=== PATIENT | male | born 1945 | race Caucasian/White ===

== ENCOUNTER 2018-05-24 09:35 | Emergency (ER) | payer MEDICARE ==
[2018-05-24 09:53] VITALS: BP 126/77
--- NOTE | 2018-05-24 10:33 | ED Physician Documentation ---
PD HPI SKIN - Stated complaint Stated Complaint: RASH/BACK PX - Chief complaint Chief Complaint: General - History obtained from History obtained from: Patient, Family - History of Present Illness Timing - onset: Today Timing - duration: Minutes Timing - details: Abrupt onset, Still present Location: Abdomen Quality / character: Itchy, Painful Associated symptoms: Abd pain. No: Fever, Myalgias, Joint pain Contributing factors: Other (moved to the area this summer) Similar symptoms before: Has not had sx before Recently seen: Not recently seen - Additional information Additional information: 73-year-old male who was previously well has developed a rash on his abdomen and back. He states that for about 3 days he has had some funny back and abdominal pain without nausea vomiting diarrhea or constipation. He has not had fever. He has noticed this outbreak of a rash on the right side of his abdomen and back this morning. He did get a shingles shot about 3 years ago. He is recently moved to the area from [place] and the couple has a grandchild here on [facility]. Review of Systems Constitutional: denies: Fever, Chills, Myalgias, Fatigue Eyes: denies: Decreased vision Nose: denies: Rhinorrhea / runny nose, Congestion Throat: denies: Sore throat Cardiac: denies: Chest pain / pressure, Palpitations Respiratory: denies: Dyspnea, Cough GI: reports: Abdominal Pain. denies: Nausea, Vomiting, Constipation, Diarrhea : denies: Dysuria, Frequency Skin: reports: Rash Musculoskeletal: reports: Back pain. denies: Neck pain, Extremity pain Neurologic: denies: Generalized weakness, Focal weakness, Numbness PD PAST MEDICAL HISTORY - Past Medical History Past Medical History: Yes Cardiovascular: High cholesterol Endocrine/Autoimmune: Type 2 diabetes GI: Diverticulitis - Past Surgical History Past Surgical History: Yes Derm: Skin cancer surgery - Present Medications Home Medications: Ambulatory Orders Medication Instructions Recorded Confirmed Hydrocodone/Acetaminophen 1 - 2 each PO Q6H PRN #14 tablet 05/24/18 [Hydrocodon-Acetaminophen 5-325] Metformin HCl 05/24/18 Pravastatin [Pravachol] 05/24/18 Sitagliptin Phosphate [Januvia] 05/24/18 Valacyclovir HCl [Valacyclovir] 1,000 mg PO TID #21 tablet 05/24/18 - Allergies Allergies/Adverse Reactions: Allergies Allergy/AdvReac Type Severity Reaction Status Date / Time No Known Drug Allergies Allergy Verified 05/24/18 09:52 - Social History Does the pt smoke?: No Smoking Status: Never smoker Does the pt drink ETOH?: No Does the pt have substance abuse?: No - Immunizations Immunizations are current?: Yes - POLST Patient has POLST: No PD ED PE NORMAL - Vitals Vital signs reviewed: Yes - General General: Alert and oriented X 3, No acute distress, Well developed/nourished - HEENT HEENT: Atraumatic, PERRL, EOMI - Neck Neck: Supple, no meningeal sign - Cardiac Cardiac: RRR, No murmur - Respiratory Respiratory: No respiratory distress, Clear bilaterally - Derm Derm: Normal color, Warm and dry, Other (The rash to the right flank and abdomen is consistent with acute shingles ) - Extremities Extremities: No deformity, No edema - Neuro Neuro: Alert and oriented X 3, 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 He does have a [id number] grandchild and he is instructed to avoid contact with the rash area until it is healed over. Departure - Departure Disposition: 01 Home, Self Care Clinical Impression: Shingles Qualifiers: Herpes zoster complications: unspecified herpes zoster complication Qualified Code(s): B02.8 - Zoster with other complications Condition: Stable Instructions: ED Shingles Follow-Up: Your, doctor [Other] Prescriptions: Hydrocodone/Acetaminophen [Hydrocodon-Acetaminophen 5-325] 1 - 2 each PO Q6H PRN #14 tablet PRN Reason: pain Valacyclovir HCl [Valacyclovir] 1,000 mg PO TID #21 tablet
[2018-05-24] MEDS ORDERED: BACITRACIN OINT TOP ONE (10:36)
== END 2018-05-24 10:44 | disposition home or self-care (01) ==
LOC: ED 09:35
DX: B02.8 Zoster with other complications (principal); E11.9 Type 2 diabetes mellitus without complications; Z79.84 Long term (current) use of oral hypoglycemic drugs
CPT/HCPCS: 99283; A9270

== ENCOUNTER 2018-06-11 11:22 | Emergency (ER) | payer MEDICARE ==
[2018-06-11 12:13] LABS: BASOPHILS # (AUTO) 0.1 10^3/uL (0.0-0.1); BASOPHILS % (AUTO) 0.7 %; EOSINOPHILS # (AUTO) 0.1 10^3/uL (0.0-0.7); EOSINOPHILS % (AUTO) 1.1 %; HGB - HEMOGLOBIN 16.1 g/dL (14.0-18.0); LYMPHOCYTES # (AUTO) 1.7 10^3/uL (1.5-3.5); LYMPHOCYTES % (AUTO) 13.1 %; MEAN CORPUSCULAR HEMOGLOBIN 32.8 pg (27.0-31.0); MEAN CORPUSCULAR HGB CONC 34.3 g/dL (32.0-36.0); MEAN CORPUSCULAR VOLUME 95.6 fL (80.0-94.0); MEAN PLATELET VOLUME 8.6 fL (7.4-11.4); MONOCYTES # (AUTO) 0.6 10^3/uL (0.0-1.0); MONOCYTES % (AUTO) 4.8 %; NEUTROPHILS # (AUTO) 10.4 10^3/uL (1.5-6.6); NEUTROPHILS % (AUTO) 80.3 %; PLT - PLATELET COUNT 297 10^3/uL (130-450); RED BLOOD COUNT 4.93 10^6/uL (4.70-6.10); RED CELL DISTRIBUTION WIDTH 14.1 % (12.0-15.0)
--- NOTE | 2018-06-11 12:29 | ED Physician Documentation ---
PD HPI ABD PAIN - Stated complaint Stated Complaint: AB SWELLING/PX - Chief complaint Chief Complaint: Abd Pain - History obtained from History obtained from: Patient - History of Present Illness Timing - onset: How many weeks ago (2 1/2 weeks of right back/abd pain due to shingles. Lesions are crusting. PMD started Gabapentin few days ago due to continued pain. Patient says has some increased pain right abd and some feeling of swelling. Went to PMD and there was concern of appy or diverticulitis or such, so referred to ED for CT/eval.) Timing - duration: Weeks (2 1/2) Timing - details: Gradual onset, Still present Quality: Aching, Pain Location: RLQ Radiation: Right flank Improved by: No: Eating Worsened by: No: Eating Associated symptoms: Nausea, Loss of appetite. No: Fever, Vomiting, Diarrhea, Constipation, Dysuria Review of Systems Constitutional: reports: Myalgias. denies: Fever, Chills Nose: denies: Rhinorrhea / runny nose, Congestion Throat: denies: Sore throat Cardiac: denies: Chest pain / pressure Respiratory: denies: Dyspnea, Cough GI: reports: Abdominal Pain. denies: Vomiting, Constipation, Diarrhea : denies: Dysuria, Frequency Skin: reports: Rash PD PAST MEDICAL HISTORY - Past Medical History Cardiovascular: High cholesterol Endocrine/Autoimmune: Type 2 diabetes GI: Diverticulitis - Past Surgical History Past Surgical History: Yes Derm: Skin cancer surgery - Present Medications Home Medications: Ambulatory Orders Medication Instructions Recorded Confirmed Hydrocodone/Acetaminophen 1 - 2 each PO Q6H PRN #14 tablet 05/24/18 [Hydrocodon-Acetaminophen 5-325] Metformin HCl 05/24/18 Pravastatin [Pravachol] 05/24/18 Sitagliptin Phosphate [Januvia] 05/24/18 Cephalexin [Keflex] 500 mg PO Q6H #28 capsule 06/11/18 Docusate Sodium [Dulcolax Stool 06/11/18 Softener] Gabapentin 600 mg PO TID 06/11/18 06/11/18 Naproxen 500 mg PO BID #20 tablet 06/11/18 Sennosides [Senna Laxative] 2 tab PO QID 06/11/18 06/11/18 - Allergies Allergies/Adverse Reactions: Allergies Allergy/AdvReac Type Severity Reaction Status Date / Time No Known Drug Allergies Allergy Verified 06/11/18 11:50 - Social History Does the pt smoke?: No Smoking Status: Never smoker Does the pt drink ETOH?: No Does the pt have substance abuse?: No - Immunizations Immunizations are current?: Yes - POLST Patient has POLST: No PD ED PE NORMAL - Vitals Vital signs reviewed: Yes - General General: Alert and oriented X 3, No acute distress, Well developed/nourished - Neck Neck: Supple, no meningeal sign, No adenopathy - Cardiac Cardiac: RRR, No murmur - Respiratory Respiratory: Clear bilaterally - Abdomen Abdomen: Normal bowel sounds, Soft, Non distended, No organomegaly, Other (there is shingles rash with some scabbing on right back/around to abd in T10 area, with local tenderness. There is local tenderness to deeper palpation in that area of abd. Not tender in rest of abd and no percussion nor rebound tenderness. ) - Male Male : Deferred - Rectal Rectal: Deferred - Derm Derm: Warm and dry, Other (shingles rash as noted right back/abd) - Neuro Neuro: Alert and oriented X 3, No motor deficit, Normal speech Results - Vitals Vitals: Vital Signs - 24 hr 06/11/18 14:30 Heart Rate 70 Respiratory 16 Rate Blood Pressure 109/71 Oxygen O2 Source Room air - Labs Labs: Laboratory Tests 06/11/18 06/11/18 12:05 12:05 WBC 13.0 H RBC 4.93 Hgb 16.1 Hct 47.1 MCV 95.6 H MCH 32.8 H MCHC 34.3 RDW 14.1 Plt Count 297 MPV 8.6 Neut # (Auto) 10.4 H Lymph # (Auto) 1.7 [place] # (Auto) 0.6 Eos # (Auto) 0.1 Baso # (Auto) 0.1 Absolute Nucleated RBC 0.00 Nucleated RBC % 0.0 Sodium 136 Potassium 4.1 Chloride 101 Carbon Dioxide 27 Anion Gap 8.0 BUN 15 Creatinine 0.9 Estimated GFR (MDRD) 83 L Glucose 160 H Calcium 9.3 Total Bilirubin 0.3 AST 20 ALT 30 Alkaline Phosphatase 65 Total Protein 6.9 Albumin 4.0 Globulin 2.9 Albumin/Globulin Ratio 1.4 Lipase 71 H - Rads (name of study) CT abd/pelvis Radiology: Prelim report reviewed (no intra-abd process for the pain), EMP read contemporaneously (i did not see any soft tissue changes to suggest infection in area. ), See rad report PD MEDICAL DECISION MAKING - ED course Complexity details: reviewed results (CT abd did not show any intra-abd process. soft tissue without apparent abscess nor cellulitic changes. ), considered differential (has shingles in right T10 area but with lower right abd deeper pain and his PMD was concerned about also appy or diverticultiis and sent him in for eval/CT. Seems unlikely coincidence but clinically would be hard to distinguish so can get scan to see. Consider also secondary infection to the shingles sores, but does not appear so clinically right now. ), d/w patient Departure - Departure Disposition: 01 Home, Self Care Clinical Impression: Shingles Qualifiers: Herpes zoster complications: without complications Qualified Code(s): B02.9 - Zoster without complications Abdominal pain Qualifiers: Abdominal location: right lower quadrant Qualified Code(s): R10.31 - Right lower quadrant pain Condition: Stable Record reviewed to determine appropriate education?: Yes Instructions: ED Abdominal Pain Unkn Cause Follow-Up: MADHAV WILLARD MD [Primary Care Provider] - Prescriptions: Cephalexin [Keflex] 500 mg PO Q6H #28 capsule Naproxen 500 mg PO BID #20 tablet Comments: Continue current meds. Add Naproxen twice daily. If redness or swelling increases, then consider possible infection and add Keflex antibiotic. Discharge Date/Time: 06/11/18 14:57
[2018-06-11 12:33] LABS: ALBUMIN/GLOBULIN RATIO 1.4 (1.0-2.2); BILIRUBIN,TOTAL 0.3 mg/dL (0.2-1.0); CALCIUM 9.3 mg/dL (8.5-10.3); CREATININE 0.9 mg/dL (0.6-1.2); TOTAL PROTEIN 6.9 g/dL (6.7-8.2)
[2018-06-11] MEDS ORDERED: IOVERSOL 320 100 ML VIAL IVP ONE ×2 (13:07→14:05)
--- NOTE | 2018-06-11 14:12 | CT Report ---
Reason: has shingles right abd; worse deeper pain abd RLQ Procedure Date: 06/11/2018 Accession Number: [id number] / [id number] Procedure: CT - Abdomen/Pelvis W/ CPT Code: FULL RESULT: EXAM: CT ABDOMEN AND PELVIS EXAM DATE: 06/11/2018 02:03 PM. CLINICAL HISTORY: Has shingles right abdomen; worse deeper pain in right lower quadrant of abdomen. COMPARISONS: None. TECHNIQUE: Routine helical CT imaging was performed through the abdomen and pelvis. IV contrast: Optiray 320, 90 mL. Enteric contrast: No. Reconstructions: Coronal and sagittal. In accordance with CT protocol optimization, one or more of the following dose reduction techniques were utilized for this exam: automated exposure control, adjustment of mA and/or KV based on patient size, or use of iterative reconstructive technique. FINDINGS: Lung Bases: Unremarkable. Liver: Hepatic cyst in the left lobe as well as hepatic hypodensities which are too small to characterize. Gallbladder/Bile Ducts: Unremarkable. Spleen: Normal. Pancreas: Normal. Adrenal Glands: Normal. Kidneys: Bilateral renal cysts and hypodensities which are too small to characterize. Peritoneal Cavity/Bowel: Normal. No free fluid, free air or adenopathy. No masses or acute inflammatory process. The appendix is well visualized and normal. Pelvic Organs: Normal. The bladder and visualized pelvic organs are within normal limits. Vasculature: Mild atherosclerosis. Bones: Mild loss of height of the L4 vertebral body as well as superior endplate deformity of the L3 vertebral body, indeterminate age. Other: None. IMPRESSION: No acute visceral abnormality is detected. RADIA
[2018-06-11 16:01] VITALS: BP 109/71
== END 2018-06-11 14:57 | disposition home or self-care (01) ==
LOC: ED 11:22
DX: B02.9 Zoster without complications (principal); R10.31 Right lower quadrant pain; E11.9 Type 2 diabetes mellitus without complications; E78.00 Pure hypercholesterolemia, unspecified; Z79.84 Long term (current) use of oral hypoglycemic drugs
CPT/HCPCS: 36415; 74177; 80053; 83690; 85025; 99283; Q9967

== ENCOUNTER 2019-05-13 06:28 | Day surgery (SDC) | payer MEDICARE ==
[2019-05-13] MEDS ORDERED: LACTATED RINGERS 1,000 ML IV ONE (06:45)
[2019-05-13] MEDS ORDERED: ONDANSETRON 4 MG/2 ML VIAL ONE (07:19)
[2019-05-13] MEDS ORDERED: fentaNYL 100 MCG/2 ML VIAL IVP ONE (08:16)
[2019-05-13] MEDS ORDERED: MIDAZOLAM 2 MG/2 ML VIAL IVP ONE (08:16)
[2019-05-13 09:41] VITALS: BP 118/74
== END 2019-05-13 06:29 | disposition home or self-care (01) ==
LOC: SDS 06:28
PROVIDERS: ATTEND Surgery
PROC: 0DBN8ZZ Excision of Sigmoid Colon, Via Natural or Artificial Opening Endoscopic (ICD-10-PCS; principal; 2019-05-13 08:00)
DX: Z12.11 Encounter for screening for malignant neoplasm of colon (principal); D12.5 Benign neoplasm of sigmoid colon; E11.9 Type 2 diabetes mellitus without complications; Z79.84 Long term (current) use of oral hypoglycemic drugs
CPT/HCPCS: 45385; J7120

== ENCOUNTER 2021-10-24 11:09 | Outpatient (CLI) | payer MEDICARE ==
[2021-10-24 11:28] LABS: BASOPHILS % (AUTO) 0.4 %; EOSINOPHILS # (AUTO) 0.1 10^3/uL (0.0-0.7); EOSINOPHILS % (AUTO) 1.8 %; HCT - HEMATOCRIT 41.7 % (42.0-52.0); HGB - HEMOGLOBIN 13.9 g/dL (14.0-18.0); LYMPHOCYTES # (AUTO) 1.4 10^3/uL (1.5-3.5); LYMPHOCYTES % (AUTO) 19.5 %; MEAN CORPUSCULAR HEMOGLOBIN 32.7 pg (27.0-31.0); MEAN CORPUSCULAR HGB CONC 33.3 g/dL (32.0-36.0); MEAN CORPUSCULAR VOLUME 98.1 fL (80.0-94.0); MEAN PLATELET VOLUME 9.9 fL (7.4-11.4); MONOCYTES # (AUTO) 0.5 10^3/uL (0.0-1.0); MONOCYTES % (AUTO) 7.2 %; NEUTROPHILS # (AUTO) 5.2 10^3/uL (1.5-6.6); NEUTROPHILS % (AUTO) 70.8 %; PLT - PLATELET COUNT 277 10^3/uL (130-450); RED BLOOD COUNT 4.25 10^6/uL (4.70-6.10); RED CELL DISTRIBUTION WIDTH 12.8 % (12.0-15.0); WHITE BLOOD COUNT 7.3 x10^3/uL (4.8-10.8)
[2021-10-24 11:33] LABS: BILIRUBIN,URINE NEGATIVE (NEGATIVE); GLUCOSE, URINE (UA) NEGATIVE (NEGATIVE); KETONES,URINE (UA) NEGATIVE (NEGATIVE); LEUKOCYTE ESTERASE, URINE NEGATIVE (NEGATIVE); NITRITE,URINE NEGATIVE (NEGATIVE); OCCULT BLOOD,URINE NEGATIVE (NEGATIVE); PH,URINE 5.5 PH (5.0-7.5); PROTEIN,URINE NEGATIVE (NEGATIVE); UROBILINOGEN,URINE 0.2 (NORMAL) E.U./dL (NORMAL)
[2021-10-24 11:34] LABS: CALCIUM 9.1 mg/dL (8.5-10.3); CREATININE 0.9 mg/dL (0.6-1.2)
[2021-10-24 11:35] LABS: CLARITY,URINE CLEAR (CLEAR)
[2021-10-24 11:52] LABS: BACTERIA,URINE Rare /HPF (None Seen); RBC,URINE 0-5 /HPF (0-5); SQUAMOUS EPITHELIAL CELL,UR RARE Squamous (<= Few); WBC,URINE 0-3 /HPF (0-3)
[2021-10-24 14:18] LABS: ESTIMATED AVERAGE GLUCOSE 131 mg/dL (70-100); HEMOGLOBIN A1c% 6.2 % (4.27-6.07)
== END 2021-10-24 11:10 | disposition home or self-care (01) ==
LOC: LAB 11:09
PROVIDERS: ATTEND Orthopaedic Surgery
DX: Z01.818 Encounter for other preprocedural examination (principal); Z01.812 Encounter for preprocedural laboratory examination; R73.9 Hyperglycemia, unspecified; N39.0 Urinary tract infection, site not specified
CPT/HCPCS: 36415; 80048; 81001; 83036; 85025; 87086; 93005

== ENCOUNTER 2022-05-28 07:00 | Outpatient (CLI) | payer MEDICARE | END 2022-05-28 23:59 | disposition home or self-care (01) | LOC: LAB.S 07:00 | PROVIDERS: ATTEND Physician Assistant Medical | DX: L03.90 Cellulitis, unspecified (principal) | CPT/HCPCS: 87070; 87205 ==

== ENCOUNTER 2023-10-24 07:00 | Outpatient (CLI) | payer MEDICARE ==
--- NOTE | 2023-10-24 11:35 | XRAY Report ---
PROCEDURE: Chest 2V INDICATIONS: BRONCHITIS TECHNIQUE: 2 views of the chest were acquired. COMPARISON: None. FINDINGS: Surgical changes and devices: None. Lungs and pleura: Possible linear atelectasis or scar at the left base. No dense airspace disease. N o pleural effusions. Mediastinum: Normal heart size Bones and chest wall: Degenerative changes. IMPRESSION: No acute radiographic abnormality. Possible linear opacity at left base probably scarring or atelecta sis. Reviewed by: Gordon Hutchins MD on 10/24/2023 11:34 AM PDT Approved by: Gordon Hutchins MD on 10/24/2023 11:34 AM PDT Station ID: [id number]
== END 2023-10-24 23:59 | disposition home or self-care (01) ==
LOC: DI.S 07:00
PROVIDERS: ATTEND Emergency Medicine
DX: J20.9 Acute bronchitis, unspecified (principal)